=== PATIENT | male | born 1955 | race Caucasian/White ===

== ENCOUNTER → 2023-11-04 07:17 | Day surgery (SDC) | payer BC, SELFPAY | LOC: GI 07:17 | PROVIDERS: ATTENDING PHYSICIAN Internal Medicine Gastroenterology; FAMILY PHYSICIAN Family Medicine | DX: Z12.11 Encounter for screening for malignant neoplasm of colon (principal); K63.89 Other specified diseases of intestine; K57.30 Diverticulosis of large intestine without perforation or abscess without bleeding; K64.8 Other hemorrhoids; K64.4 Residual hemorrhoidal skin tags; K59.00 Constipation, unspecified; Z86.010 Personal history of colon polyps; Z98.0 Intestinal bypass and anastomosis status | CPT/HCPCS: 45380; 88305 ==

== ENCOUNTER → 2023-11-08 08:56 | Outpatient (REF) | payer BC, SELFPAY | LOC: RAD 08:56 | PROVIDERS: ATTENDING PHYSICIAN Orthopaedic Surgery Adult Reconstructive Orthopaedic Surgery; FAMILY PHYSICIAN Family Medicine | DX: Z96.653 Presence of artificial knee joint, bilateral (principal) | CPT/HCPCS: 78315; A9503 ==

== ENCOUNTER → 2023-11-09 12:31 | Outpatient (REF) | payer BC, SELFPAY ==
[2023-11-09 13:07] LABS: % Basophils 1.2 % (0-2); % Eosinophils 1.7 % (0-6); % Immature Granulocytes 0.4 % (0-0.5); % Lymphocytes 18.6 % (20.5-51.1); % Monocytes 7.4 % (1.7-9.3); % Neutrophils 70.7 % (42.2-75.2); Absolute Basophils 0.1 10^3/uL (0-0.2); Absolute Eosinophils 0.1 10^3/uL (0-0.7); Absolute Lymphocytes 1.4 10^3/uL (1.2-3.4); Absolute Monocytes 0.6 10^3/uL (0.1-0.6); Absolute Neutrophils 5.3 10^3/uL (1.4-6.5); Hematocrit 40.9 % (39.0-52.0); Hemoglobin 13.6 g/dL (13.0-18.0); Mean Corp Hgb Conc. 33.3 g/dL (33.0-37.0); Mean Corpuscular Volume 87.2 fL (80.0-94.0); Mean Platelet Volume 9.4 fL (7.4-10.4); Nucleated Red Blood Cells % 0 % (-); Platelet Count 381 10^3/uL (130-400); Red Blood Cell Count 4.69 10^6/uL (4.70-6.10); Red Cell Dist. Width 14.4 % (11.5-14.5); White Blood Cell Count 7.5 10^3/uL (4.8-10.8)
[2023-11-09 13:40] LABS: Erythrocyte Sed Rate 2 mm/hour (0-20)
== END ==
LOC: REG 12:31
PROVIDERS: ATTENDING PHYSICIAN Physician Assistant Medical
DX: Z96.651 Presence of right artificial knee joint (principal)
CPT/HCPCS: 36415; 85025; 85652; 86140

== ENCOUNTER → 2025-06-17 15:37 | Outpatient (REF) | payer OTHER, SELFPAY ==
[2025-06-17 17:24] LABS: PSA, Total - Diagnostic 0.71 ng/ml (0.0-4.0)
== END ==
LOC: REG 15:37
PROVIDERS: ATTENDING PHYSICIAN Specialist; FAMILY PHYSICIAN Family Medicine
DX: C61 Malignant neoplasm of prostate (principal)
CPT/HCPCS: 36415; 84153

== ENCOUNTER 2025-07-26 10:26 | Outpatient (RCR) | payer OTHER, SELFPAY | END 2025-07-26 23:59 | disposition home or self-care (01) | LOC: RPT 10:26 | PROVIDERS: ATTENDING PHYSICIAN Specialist; FAMILY PHYSICIAN Family Medicine | DX: C61 Malignant neoplasm of prostate (principal); N39.3 Stress incontinence (female) (male); M62.89 Other specified disorders of muscle; Z73.6 Limitation of activities due to disability; Z90.79 Acquired absence of other genital organ(s) | CPT/HCPCS: 97163; 97530 ==

== ENCOUNTER → 2025-08-06 07:24 | Outpatient (REF) | payer OTHER, SELFPAY | LOC: MRI 3T 07:24 | PROVIDERS: ATTENDING PHYSICIAN Radiology Radiation Oncology; FAMILY PHYSICIAN Family Medicine | DX: R97.20 Elevated prostate specific antigen [PSA] (principal) | CPT/HCPCS: 72197; A9575 ==

== ENCOUNTER 2025-08-11 08:15 | Emergency (ER) | payer OTHER, SELFPAY ==
[2025-08-11 08:19] VITALS: BP 146/95
[2025-08-11 09:30] VITALS: BP 157/94
[2025-08-11 09:31] VITALS: BMI 26.5
[2025-08-11 09:35] VITALS: BP 157/94
[2025-08-11 09:38] LABS: Hematocrit 45.3 % (39.0-52.0); Hemoglobin 15.2 g/dL (13.0-18.0); Mean Corp Hgb Conc. 33.6 g/dL (33.0-37.0); Mean Corpuscular Volume 85.0 fL (80.0-94.0); Nucleated Red Blood Cells % 0 % (-); Platelet Count 288 10^3/uL (130-400); Red Cell Dist. Width 14.3 % (11.5-14.5)
[2025-08-11 09:50] LABS: INR 1.03; PT 13.8 Sec (11.4-14.6)
[2025-08-11 09:51] LABS: APTT 33.1 Sec (23.4-35.0)
--- NOTE | 2025-08-11 10:17 | ED.GENMED ---
History of Present Illness
<Lani Soto PA-C - Last Filed: 08/11/25 11:11>
General
Chief Complaint: Esophageal Problem
Source: patient
Exam Limitations: none
Time Seen by Provider: 08/11/25 09:06
Nursing documentation reviewed up to this point in time: agreed with
History of Present Illness
History of Present Illness:
see MDM
Past History
<TOSHA Rod Last Filed: 08/11/25 11:11>
Past History
ED Past Medical History: Arrthythmia (Paroxysmal atrial fibrillation secondary mediastinitis), Other (Diverticulosis/diverticulitis; small bowel obstructions with hospital admission 2005 and 2008, mediastinitis a mediastinal abscess 2017 with
surgical repair) and Other (PE following laparotomy for colon resection)
ED Past Surgical History: Bowel resection (Sigmoid bowel resection for treatment of diverticulitis, initial colostomy with then subsequent colostomy reversal, 1998), Orthopedic (Bilateral total knee replacements) and Other (Thoracotomy for
mediastinal abscess)
Social History
Tobacco: Non-smoker
Alcohol: Occasional
Drug: None
Personal:
Living: with family
Employment: Employed
Family History
Family History: Other
Phy Exam
<TOSHA Rod Last Filed: 08/11/25 11:11>
Physical Exam
Physical Exam:
GENERAL: Alert , in no apparent distress spitting out saliva, no respiratory distress
EYE: pupils equal and reactive
NECK: Supple
ENT: o/p clr, mmm. Normal phonation
CARDIAC: Regular rate and rhythm .
LUNGS: Clear breath sounds bilaterally, no acute respiratory distress, no wheezes/rales/rhonchi
ABDOMEN: Soft, without focal tenderness, no r/g, no cvat, normal bowel sounds
NEUROLOGICAL: Alert and oriented, no focal neuro deficits
SKIN: Warm and dry, skin intact.
PSYCH: Normal and appropriate interaction.
Course
<Lani Soto PA-C - Last Filed: 08/11/25 11:11>
Orders/Labs/Results
Orders:
Orders
08/11/25 09:33
Basic Metabolic Panel Urgent
Comment: HEMOLYZED
Complete Blood Count/With Diff Urgent
PTT Urgent
Prothrombin Time Urgent
08/11/25 09:48
Glucagon [GlucaGen] 1 mg IV NOW STA
Abnormal Lab Results
08/11/25
09:33
Absolute Lymphs (auto) 1.0 L 10^3/uL
(1.2-3.4)
Neutrophils % 80.1 H %
(42.2-75.2)
Lymphocytes % 11.9 L %
(20.5-51.1)
Sodium 133 L mmol/L
(135-145)
08/11/25 09:33
08/11/25 09:33
Vital Signs
Initial and Last Documented VS:
Initial Vital Signs
Temp Pulse Resp BP Pulse Ox
36.6 C 77 16 146/95 98
08/11/25 08:19 08/11/25 08:19 08/11/25 08:19 08/11/25 08:19 08/11/25 08:19
Last Documented Vital Signs
Temp Pulse Resp BP Pulse Ox
37.0 C 66 20 157/94 100
08/11/25 09:35 08/11/25 09:35 08/11/25 09:35 08/11/25 09:35 08/11/25 10:17
Wendylt;Danie Olmstead DO - Last Filed: 08/11/25 10:35>
Orders/Labs/Results
Orders:
Orders
08/11/25 09:33
Basic Metabolic Panel Urgent
Comment: HEMOLYZED
Complete Blood Count/With Diff Urgent
PTT Urgent
Prothrombin Time Urgent
08/11/25 09:48
Glucagon [GlucaGen] 1 mg IV NOW STA
Abnormal Lab Results
08/11/25
09:33
Absolute Lymphs (auto) 1.0 L 10^3/uL
(1.2-3.4)
Neutrophils % 80.1 H %
(42.2-75.2)
Lymphocytes % 11.9 L %
(20.5-51.1)
Sodium 133 L mmol/L
(135-145)
08/11/25 09:33
08/11/25 09:33
Vital Signs
Initial and Last Documented VS:
Initial Vital Signs
Temp Pulse Resp BP Pulse Ox
36.6 C 77 16 146/95 98
08/11/25 08:19 08/11/25 08:19 08/11/25 08:19 08/11/25 08:19 08/11/25 08:19
Last Documented Vital Signs
Temp Pulse Resp BP Pulse Ox
37.0 C 66 20 157/94 100
08/11/25 09:35 08/11/25 09:35 08/11/25 09:35 08/11/25 09:35 08/11/25 10:17
<Lani Soto PA-C - Last Filed: 08/11/25 11:11>
MDM/Problems Addressed
Differential Diagnosis Includes:
See MDM
MDM/Problems Addressed:
Note:
CHIEF COMPLAINT(S)
Difficulty swallowing and inability to pass food or liquid since last night.
HISTORY OF PRESENT ILLNESS
The patient is a male with a significant past medical history of esophageal issues. He reports difficulty swallowing since consuming chicken cordon michel last night. The symptoms began immediately after eating and have persisted, with the sensation
of food being lodged in the esophagus, preventing the passage of both solid and liquid. The patient states, 'nothings going down,' and describes this sensation as something sitting in his esophagus. He has experienced similar episodes three to four
times a week but typically manages to either advance or regurgitate the obstruction. However, last nights episode was unresolvable by his usual methods.
The patient had previously experienced esophageal obstruction that required medical intervention, including endoscopic procedures. In 2017, he experienced an episode leading to an ICU stay after presenting with what initially appeared to be a
cardiac event, attributed later to an esophageal abscess likely caused by an esophageal perforation. During diagnostic evaluations, he was found to have blood clots in the calves and later developed an esophageal abscess contributing to cardiac
symptoms.
PAST MEDICAL AND SURGICAL HISTORY
- History of esophageal obstruction requiring endoscopic intervention
- History of hiatal hernia and paraesophageal hernia surgery
- Bilateral knee replacement with postoperative infection leading to multiple revisions
CHRONIC MEDICAL CONDITIONS SIGNIFICANTLY AFFECTING CARE
- Recurrent esophageal obstruction and hiatal hernia
- Hypertension, managed with Metoprolol
- Thrombotic events managed with Apixaban
SOCIAL DETERMINANTS AFFECTING HEALTH
The patient experiences frequent hospital visits related to esophageal issues, which could potentially impact his employment or quality of life.
MEDICATIONS
- Metoprolol: Daily
- Apixaban: Twice daily
- Amoxicillin: Daily
- Wellbutrin: Morning
- Other unspecified medications as needed (Chantix mentioned)
REVIEW OF SYSTEMS
- Gastrointestinal: Persistent esophageal obstruction, frequent sensations of food being lodged in the esophagus.
- Cardiovascular: History of abnormal heart rhythms, managed by ICU intervention in past episodes.
PHYSICAL EXAM
- General: Nursing notes reviewed and vital signs reviewed.
- Gastrointestinal: The patients discomfort localizes to the esophagus without fever or chills.
- Cardiovascular: No acute distress noted from cardiovascular symptoms based on the current examination.
PROBLEM LIST
Acute:
- Esophageal obstruction
Chronic:
- Recurrent esophageal disorders
- History of thrombotic events and hypertension
- Past surgical revisions of knee replacements due to infection
PLAN
- Consultation with Gastroenterology (GI) to assess the need for possible endoscopic intervention.
- Consideration of administering glucagon to aid in relaxing the esophageal muscle.
- NPO (nothing by mouth) until further evaluation by GI.
DIFFERENTIAL DIAGNOSIS
The Differential Diagnosis includes, in no particular order and is not limited to:
1. Esophageal obstruction due to food impaction
2. Esophageal strictures
3. Esophageal spasm
4. Hiatal hernia complications
5. Gastroesophageal reflux disease (GERD)
6. Esophagitis
7. Dysphagia due to neuromuscular disorders
8. Peptic ulcer disease
9. Esophageal perforation
10. Esophageal motility disorder
CARE-UPDATE
08/11/25 - 10:17
Administered a dose of glucagon following consultation with the on-call GI specialist. The patient reported feeling like the obstruction may have passed after the initial dose. He continues to be monitored for changes in symptoms. Re-evaluation
pending based on patients response to treatment.
Patient reevaluated, he passed water easily and has no discomfort. Discharge home
<Lani Soto PA-C - Last Filed: 08/11/25 11:11>
*Pulse Oximetry
SaO2: 100
Oxygen Mode of Delivery: Room air
Patient hypoxic: no (100)
*Critical Care Note
Total Time (30-74mins, 75-104mins- exclusive of procedures): Not Applicable
ED Attending Note
<Lani Soto PA-C - Last Filed: 08/11/25 11:11>
-
Portions of this chart may have been created with voice recognition software.� Occasional wrong word or��sound alike� substitutions may have occurred due to the inherent limitations of voice recognition software.
<Danie Olmstead DO - Last Filed: 08/11/25 10:35>
ED Attending Note
Patient seen and examined by attending physician: Yes
I performed the substantive portion of visit, reviewed & personally made and approve the management plan that is documented in note by myself or DAVID.: Yes
ED Attending Note:
Patient presents with sensation of an esophageal food obstruction. Patient was eating chicken last night and feels like it stuck. Symptoms have not improved. He is not able to tolerate secretions or drinking liquids.
No airway involvement
General: Awake, Alert, Oriented X3. No acute distress.
Vitals: unremarkable
Head: Atraumatic
Eyes: Pupils equal, EOMI
Neck: Trachea midline
Neuro: Nonfocal
Skin: Warm, dry, no rash
Extremities: pulses equal b/l, no edema
We will attempt to clear the bolus with glucagon. If unsuccessful patient will require endoscopy
Discharge Plan
Departure
Patient Disposition: Home (Routine Discharge)
Date of Disposition: 08/11/25
Time of Disposition: 10:28
Patient with high blood pressure during this ER visit?: Yes
Condition: Fair
Covid-19: Not Applicable
Discharge Problem:
Food impaction of esophagus
Instructions: Food Obstruction
Prescriptions:
No Action
tramadol 50 MG tablet
50 mg PO Q6HPRN PRN (Reason: mild pain)
Eliquis 5 MG tablet
5 mg PO BID
metoprolol succinate 100 mg tablet extended release 24 hr
100 mg PO QPM
naproxen sodium [Aleve] 220 mg Tablet
220 mg PO BID PRN (Reason: mild pain)
Referrals:
Bertram Martínez MD [Family Provider, Family Practice]
Activity Restrictions/Additional Instructions:
The glucagon helped past your chicken. Please avoid eating today. You should probably cut up your food in smaller bites as well. Follow-up with your GI doctor. Return for any concerns
Interventions
Interventions:
*Risk Screen - Suicide Last Done: 08/11/25 08:19
*General Assessment Last Done: 08/11/25 09:35
*Neglect/Abuse Screening Last Done: 08/11/25 08:19
*ED- Fall Risk Assessment Last Done: 08/11/25 09:35
*ED COVID-19 Vaccine History Last Done: 08/11/25 09:35
*ED Influenza Vaccine History Last Done: 08/11/25 09:35
*Nursing Disposition Last Done: 08/11/25 10:35
AZ-Yrjupy-[id number] Assessment Last Done: 08/11/25 09:35
ED-EENT Assessment Last Done: 08/11/25 09:35
Discharge Date and Time
Discharge Date/Time: 08/11/25 10:39
Print Language: [place]
[2025-08-11 10:21] LABS: Blood Urea Nitrogen 17 mg/dl (9-20); Calcium 9.8 mg/dl (8.4-10.2); Carbon Dioxide 24 mmol/L (22-30); Chloride 104 mmol/L (98-107); Estimated Creatinine Clearance 86 ml/min; Glucose 88 mg/dl (70-99); Sodium 133 mmol/L (135-145); eGFR > 60.00
== END 2025-08-11 10:39 | disposition home or self-care (01) ==
LOC: EMR 08:15
PROVIDERS: Physician Assistant; EMERGENCY PHYSICIAN Emergency Medicine; FAMILY PHYSICIAN Family Medicine
DX: T18.128A Food in esophagus causing other injury, initial encounter (principal); W44.F3XA Food entering into or through a natural orifice, initial encounter; I10 Essential (primary) hypertension; I48.0 Paroxysmal atrial fibrillation; Z79.01 Long term (current) use of anticoagulants; Z79.899 Other long term (current) drug therapy
CPT/HCPCS: 96374; 99284; 80048; 85025; 85610; 85730; J1610

== ENCOUNTER → 2025-08-26 20:18 | Outpatient (REF) | payer OTHER, SELFPAY | LOC: MRI 20:18 | PROVIDERS: ATTENDING PHYSICIAN Family Medicine | DX: C61 Malignant neoplasm of prostate (principal); Z53.20 Procedure and treatment not carried out because of patient's decision for unspecified reasons; R94.8 Abnormal results of function studies of other organs and systems | CPT/HCPCS: 73223; A9575 ==